=== PATIENT | male | born 1990 | race Caucasian/White ===

== ENCOUNTER 2023-06-20 00:25 | Day surgery (SDC) | payer BC, SELFPAY ==
[2023-06-16 10:42] VITALS: BMI 23.8
[2023-06-20] MEDS: LACTATED RINGERS 1,000 ML 150 ML IV CONT (08:35)
--- NOTE | 2023-06-20 08:42 | PM.HPGS ---
History of Present Illness History of Present Illness Consent: Risks, benefits, and alternatives have been discussed and questions answered. Patient agrees to proceed with procedure. Chief complaint: Pouchitis,hx of ulcerative colitis Narrative: Ry Sawyer II is a 32 year old male Presents for flexible sigmoidoscopy. Patient has a history of ulcerative colitis diagnosed in 2009 patient underwent total colectomy in 2014. 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 Previously followed by Dr. Conroy in [place]. Most recent endoscopy was performed 2019. Previous episodes of pouchitis have improved with Flagyl but patient prefers not to remain on this fdc because of poor taste. Patient had Flagyl restarted 6 weeks ago with good response to therapy. He no longer has the urgency. Decrease frequency of bowel habits. He presents today for endoscopy to evaluate his pouchitis. Review of Systems Review of Systems: Review of systems noncontributory. [facility] Past Medical History Medical History Ulcerative colitis Surgical History Surgical History Hx of ileostomy Social History Social History Smoking status: Never smoker Alcohol intake: current Drinks per week: 10 Alcohol use details: DRINKS Substance use: current Substance use type: marijuana and inhalants Other substance usage details: 3-4 TIMES A WEEK Living arrangements: with family Spiritual care concerns: No Meds Home Medications and Allergies Home Medications Medication Instructions Recorded Confirmed Type ciprofloxacin HCl 500 mg tablet 500 mg PO Q12H #28 tabs 05/10/23 06/20/23 Rx (Cipro) Allergies Allergy/AdvReac Type Severity Reaction Status Date / Time peanut Allergy Severe Anaphylaxis Verified 06/20/23 08:30 tree nut Allergy Severe Anaphylaxis Verified 06/20/23 08:30 No Known Drug Allergies Allergy Unknown Unknown Verified 06/20/23 08:30 Exam Narrative: Physical exam reveals patient to be alert. Vital signs stable. HEENT exam is unremarkable. Patient is anicteric. Lungs are clear to auscultation and percussion. Heart is without murmur or extra sounds. Abdomen bowel sounds are present soft nontender with no organomegaly. 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 Flex sig anticipated today because of concerns over pouch itis. (2) Pouchitis: Code(s): K91.850 - Pouchitis Status: Acute Assessment and Plan: Patient appears to have a good response to trial of Flagyl. He may benefit from low-dose long-term maintenance therapy. Flexible sigmoidoscopy to be performed today. Further recommendations after endoscopy.
--- NOTE | 2023-06-20 09:14 | WPDANESEPPF ---
Anes - Initial Pre Proc Eval Procedure: Operation Date: 06/20/23 09:30 Proposed Procedures p Flexible Sigmoidoscopy - eDlmar Rodriguez MD Date/Time: 06/20/23 09:14 Surgeon: Delmar Rodriguez MD Pre Op Diagnosis: Pouchitis,hx of ulcerative colitis Patient Data Age: 32 Gender: M Height: 1.83 m Weight: 79.5 kg Allergies Allergy/AdvReac Type Severity Reaction Status Date / Time peanut Allergy Severe Anaphylaxis Verified 06/20/23 08:30 tree nut Allergy Severe Anaphylaxis Verified 06/20/23 08:30 No Known Drug Allergies Allergy Unknown Unknown Verified 06/20/23 08:30 Home Medications Medication Instructions Recorded Confirmed Type ciprofloxacin HCl 500 mg tablet 500 mg PO Q12H #28 tabs 05/10/23 06/20/23 Rx (Cipro) Patient hx anesthesia problems: none Family hx anesthesia problems: none Results Review: All pre-operative results and documents have been reviewed as part of the pre-operative evaluation. [facility] Past Medical History Medical History Ulcerative colitis Surgical History Surgical History Hx of ileostomy Social History Social History Smoking status: Never smoker Alcohol intake: current Drinks per week: 10 Alcohol use details: DRINKS Substance use: current Substance use type: marijuana and inhalants Other substance usage details: 3-4 TIMES A WEEK Living arrangements: with family Spiritual care concerns: No Anes - Eval Final PreProcedure Day of Procedure 06/20/23 09:14 Patient weight: normal Heart: regular rate and rhythm Lungs: clear to auscultation Airway: Mallampati scale class II Neurological: alert and oriented Last oral intake: >/= 8 hours ASA classification: II Emergent: no Anesthetic plan: proceed Anesthesia type and monitoring: general GIVS and standard monitoring Results Review: All pre-operative results and documents have been reviewed as part of the pre-operative evaluation. Informed Consent: The patient's anesthetic plan and its attendant risks and benefits were discussed with the patient/family/POA. Questions were solicited and answers provided to the satisfaction of the patient/family/POA.
[2023-06-20 10:04] VITALS: BP 108/64; PULSE 58; RESP 19; O2SAT 99
[2023-06-20 10:14] VITALS: BP 103/70; PULSE 67; RESP 17; O2SAT 100
[2023-06-20 10:24] VITALS: BP 117/65; PULSE 60; RESP 19; O2SAT 100
== END 2023-06-20 10:38 | disposition home or self-care (01) ==
PROVIDERS: Visit Provider Internal Medicine Gastroenterology
PROC: 0DJD8ZZ Inspection of Lower Intestinal Tract, Via Natural or Artificial Opening Endoscopic (ICD-10-PCS; CPT 45330; principal; 2023-06-20 09:30)
DX: K91.850 Pouchitis (principal); Z98.0 Intestinal bypass and anastomosis status; Z90.49 Acquired absence of other specified parts of digestive tract; Z87.19 Personal history of other diseases of the digestive system; F12.90 Cannabis use, unspecified, uncomplicated
CPT/HCPCS: 45330; 88305; J2704; J7120